=== PATIENT | female | born 1950 | race Caucasian/White ===

== ENCOUNTER → 2016-09-19 | Outpatient (CLI) | payer OTHER ==
[~2016-09-19] MED LIST: CHOL20009 PO; CLR10 PO; LISI-461 PO; POTA1080 PO; URC10 PO
--- NOTE | 2016-09-19 12:47 | DIAGNOSTIC IMAGING REPORT ---
KUB CLINICAL HISTORY: Nephrolithiasis. COMPARISON STUDY: KUB March 06, 2016. FINDINGS: As before, the symphysis pubis is open. There are surgical staple lines and sutures. Bowel gas pattern is normal. A 7 mm left renal calculus has not significantly changed. No ureteral calculi are identified. IMPRESSION: No change in the 7 mm left renal calculus. Electronically signed by: Brown Quintero M.D. 09/19/2016 12:45 PM Dictated Date/Time: 09/19/2016 12:44 PM
[2016-09-19 12:57] LABS: BLOOD UREA NITROGEN 24 mg/dl (7-18); BUN/CREATININE RATIO 28.3 (10-20); CALCIUM 8.8 mg/dl (8.5-10.1); CARBON DIOXIDE 24 mmol/L (21-32); CHLORIDE 109 mmol/L (98-107); CREATININE 0.84 mg/dl (0.60-1.20); GLUCOSE 79 mg/dl (70-99); POTASSIUM 3.8 mmol/L (3.5-5.1); SODIUM 142 mmol/L (136-145)
== END | disposition home or self-care (01) ==
LOC: C.RAD 11:16
PROVIDERS: ATTEND Urology
DX: N20.0 Calculus of kidney (principal)

== ENCOUNTER → 2016-09-26 | Outpatient (CLI) | payer OTHER ==
[~2016-09-26] MED LIST changes: +OPTIRAY 320 IV PRN
--- NOTE | 2016-09-26 13:36 | DIAGNOSTIC IMAGING REPORT ---
KUB CLINICAL HISTORY: N20.0 [id number] Gross hematuria hematuria COMPARISON STUDY: No previous studies for comparison. FINDINGS: Operative changes consistent with an ileal loop. Both upper urinary tracts are opacified. There is moderate distention of the left renal collecting system and left renal pelvis. There is mild irregularity of the proximal right ureter. There is no evidence for right renal hydronephrosis. IMPRESSION: 1. Moderate pre-existing left hydroureteronephrosis. 2. Moderate irregularity of the right ureter of uncertain significance although components of this potentially are postoperative. 3. Operative changes consistent with a ileal loop procedure. Electronically signed by: Jaydon Sky M.D. 09/26/2016 1:34 PM Dictated Date/Time: 09/26/2016 1:32 PM
--- NOTE | 2016-09-26 14:10 | DIAGNOSTIC IMAGING REPORT ---
CT UROGRAM CLINICAL HISTORY: Gross hematuria. History of bladder cancer. COMPARISON STUDY: Abdominal CT dated 11/19/2011. TECHNIQUE: Before and following the IV administration of 94 cc of Optiray 320, CT urogram of the abdomen and pelvis is performed from the lung bases to the proximal femora. Images are reviewed in the axial, sagittal, and coronal planes. IV contrast was administered without complication. CT DOSE: 1067.27 mGy.cm FINDINGS: Lung bases: The heart is normal in size and without pericardial effusion. There are scattered coronary artery calcifications. A small hiatal hernia is identified. Linear scarring versus atelectasis is present at both lung bases. No airspace consolidation or pleural effusion is seen. Liver: The contrast-enhanced liver is normal in size, contour, and attenuation. There is no intrahepatic biliary ductal dilatation. The hepatic veins and portal veins are patent. Gallbladder: Unremarkable. Spleen: Normal in size and attenuation. Pancreas: Unremarkable. Adrenal glands: Unremarkable. Kidneys and ureters: There is asymmetric cortical atrophy of the left kidney as compared to the right with multiple foci of cortical scarring seen on the left. There is a 4 mm nonobstructing calculus in the right kidney. Left hydroureteronephrosis is unchanged from previous. There is no right-sided hydronephrosis. There are 3 nonobstructing calculi in the left kidney measuring up to 8 mm. The kidneys enhance and excrete symmetrically. There is a 1.8 cm cyst identified in the right upper pole. Additional subcentimeter hypodensities in both kidneys also likely represent cysts but are too small for definitive characterization. Calyceal diverticula are noted in the left kidney. There is no enhancing renal cortical mass lesion identified. There is wall thickening with numerous filling defects identified throughout the right renal pelvis and the right ureter (junior sales representative foci are seen on axial images #186, #188, #199, #217, and #229). Numerous filling defects are also questioned in the left renal collecting system and the distended left ureter. There is intraluminal debris versus filling defects within either the markedly dilated distal right ureter or the ileal conduit in the right pelvis best seen on image #322. Abdominal vasculature: The abdominal aorta is normal in course and caliber noting moderate atherosclerotic calcification. Bowel: There are postoperative changes from right lower quadrant urostomy. A parastomal hernia is identified and contains a loop of small bowel. There are also postoperative changes from subtotal colectomy with colocolonic anastomosis. No bowel obstruction is identified. The appendix is not identified. Peritoneum: There is no intraperitoneal free air or abdominal ascites. Lymphadenopathy: None. Pelvic viscera: The bladder is surgically absent. There is a calcified uterine fibroid. No adnexal lesion is seen. There is a fat-containing hernia in the right groin. Skeletal structures: The skeletal structures are osteopenic. No lytic or blastic the bony lesions are seen. There is diastases of the pubic symphysis with chronic deformity of the bony pelvis. Arthritic change is noted in the hips. There is mild lumbosacral spondylosis. Small bone islands in the body of L1 in the right femoral head are unchanged from 2012. IMPRESSION: 1. There are postoperative changes from bladder resection with diverting right lower quadrant urostomy as well as subtotal colectomy with colocolonic anastomosis. 2. There are numerous small filling defects identified within the renal pelvis bilaterally and involving both ureters as detailed above. 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 Multifocal transitional cell carcinoma is the top differential consideration and would be impossible to exclude given the reported history of bladder cancer. 3. There is no retroperitoneal lymphadenopathy. 4. There is a parastomal hernia which contains a nonobstructed loop of small bowel. No bowel obstruction is seen. 5. Nonobstructing bilateral renal calculi. 6. No enhancing renal cortical mass is seen. 7. Additional findings as above. Electronically signed by: Jarrell Mendoza M.D. 09/26/2016 2:09 PM Dictated Date/Time: 09/26/2016 1:44 PM
[2016-09-26 14:32] LABS: HEMATOCRIT 38.4 % (37-47); MEAN CELL VOLUME 93.9 fL (80-100); MEAN CORPUSCULAR HEMOGLOBIN 31.3 pg (25-34); MEAN CORPUSCULAR HGB CONC 33.3 g/dl (32-36); MEAN PLATELET VOLUME 9.8 fL (7.4-10.4); PLATELET COUNT 311 K/uL (130-400); RED BLOOD COUNT 4.09 M/uL (4.2-5.4); WHITE BLOOD COUNT 10.19 K/uL (4.8-10.8)
== END | disposition home or self-care (01) ==
LOC: C.CTS 12:37
PROVIDERS: ATTEND Urology
DX: R31.0 Gross hematuria (principal); N20.0 Calculus of kidney; K43.5 Parastomal hernia without obstruction or gangrene; Z90.49 Acquired absence of other specified parts of digestive tract

== ENCOUNTER 2016-09-27 11:37 | Emergency (ER) | payer OTHER ==
[~2016-09-27] VITALS: Ht 147.3 cm; Wt 78.5 kg
[~2016-09-27 11:37] MED LIST changes: -CHOL20009 PO; -URC10 PO
[2016-09-27 11:40] VITALS: TEMP 36.6; Ht 147.3 cm; Wt 78.5 kg
[2016-09-27] MEDS ORDERED: URC10 PO (12:13)
[2016-09-27] MEDS ORDERED: CHOL20009 PO (12:14)
--- NOTE | 2016-09-27 12:31 | DIAGNOSTIC IMAGING REPORT ---
CT SCAN OF THE BRAIN WITHOUT IV CONTRAST CLINICAL HISTORY: Fall with head injury. COMPARISON STUDY: No priors. TECHNIQUE: Unenhanced axial CT scan of the brain is performed from the vertex to the skull base. Automated dose control exposure was utilized. FINDINGS: Brain parenchyma: The brain parenchyma is normal in appearance. There is no hemorrhage, mass effect, or evidence of acute territorial ischemia by CT criteria. Martell-white matter is preserved. No extra-axial fluid collection is seen. Ventricles, sulci, cisterns: Normal in configuration. Intracranial vasculature: There is mild atherosclerotic calcification of the cavernous carotid arteries. Calvarium: No depressed calvarial fracture is seen. Sinuses and mastoids: There is subtotal opacification of the left maxillary, the left sphenoid, the ethmoid, and the frontal sinuses. Moderate mucosal thickening is seen within the remaining paranasal sinuses. The mastoid air cells are well pneumatized. Orbits: The bony orbits are grossly intact. IMPRESSION: 1. There is no hemorrhage, mass effect, or evidence of acute territorial ischemia by CT criteria. 2. Significant paranasal sinus disease as above. Electronically signed by: Jarrell Mendoza M.D. 09/27/2016 12:30 PM Dictated Date/Time: 09/27/2016 12:27 PM
--- NOTE | 2016-09-27 12:36 | DIAGNOSTIC IMAGING REPORT ---
CT SCAN OF THE CERVICAL SPINE CLINICAL HISTORY: Trauma. Fall. COMPARISON STUDY: Thyroid ultrasound dated 01/30/2006. TECHNIQUE: CT scan of the cervical spine is performed from the skull base to the upper thoracic spine. Images are reviewed in the axial, sagittal, and coronal planes. IV contrast was not administered for this examination. CT DOSE: 845.39 mGy.cm FINDINGS: Skeletal structures: The skeletal structures are osteopenic. There is no evidence of fracture or subluxation involving the cervical spine. Vertebral body height and alignment are maintained. The odontoid process and lateral masses are intact. The atlantoaxial articulation is preserved noting productive degenerative change. The spinous processes appear intact. Anterior osteophytes are seen from C3 through C7. Intervertebral discs: There is advanced degenerative disc space narrowing at C4-C5, C5-C6, C6-C7. Mild to moderate narrowing is seen at C3 -C4. Central canal: Posterior disc osteophyte complexes from C3-C4 through C6-C7 may contribute to minimal acquired compromise the central canal. Soft tissues: The prevertebral and paraspinous soft tissues are within normal limits. The thyroid gland is enlarged and heterogeneous. A peripherally calcified nodule in the right lobe measures up to 1.8 cm. Additional smaller nodules are noted. The thyroid nodules were better assessed on the 2016 ultrasound. Calvarium: The visualized calvarium at the skull base appears intact. Brain parenchyma: Partially visualized brain parenchyma the skull base is within normal limits. Sinuses and mastoids: Significant mucosal thickening seen within the visualized maxillary, sphenoid, and ethmoid sinuses. The mastoid air cells are well pneumatized. Lung apices: Clear as visualized. IMPRESSION: 1. There is no evidence of fracture or subluxation involving the cervical spine. 2. Osteopenia and spondylotic change as above. 3. Enlarged and multinodular thyroid gland. Electronically signed by: Jarrell Mendoza M.D. 09/27/2016 12:34 PM Dictated Date/Time: 09/27/2016 12:30 PM
--- NOTE | 2016-09-27 12:58 | EMERGENCY ROOM VISIT NOTE ---
History First contact with patient: 11:46 Chief Complaint: FALL Stated Complaint: FELL IN DR. LARSEN'S HALLWAY History of Present Illness The patient is a 66 year old female who presents to the Emergency Department by private vehicle with her mother for evaluation after sustaining a fall while at her urologists appointment today. She reports that she tripped on a carpet causing her to fall face first. She denies any dizziness, lightheadedness, chest pain, or shortness of breath prior to the fall. She reports that she was unable to catch herself and struck the LEFT-sided face on the ground. She denies loss of consciousness. The patient was helped from the floor. She complains of some pain to the LEFT-sided face. She denies any total headache, dizziness, lightheadedness, blurry vision, double vision, slurred speech, facial droop, unilateral weakness/numbness, neck pain, chest pain, abdominal pain, back pain, or extremity pain. She rates her current discomfort as a 6/ 10. She is tried nothing for her pain to this point. The patient does not take blood thinners. Review of Systems A complete 10-point Review of Systems was discussed with the patient, with pertinent positives and negatives listed in the History of Present Illness. All remaining Review of Systems questions can be considered negative unless otherwise specified. Social History Smoking Status: Never Smoker Smokeless Tobacco Use: No Alcohol Use: none Drug Use: none Marital Status: single Housing Status: lives with family Current/Historical Medications Scheduled Cholecalciferol (Vitamin D), 2,000 UNITS PO DAILY Lisinopril (Zestril), 10 MG PO DAILY Loratadine (Claritin), 10 MG PO DAILY Potassium Citrate (Potassium Citrate), 10 MEQ PO BID Allergies Coded Allergies: Penicillins (Unverified Allergy, Severe, ANAPHYLAXIS, 09/27/16) ALLERGY2 (Verified Allergy, Unknown, 02/03/06) Uncoded Allergies: N (Allergy, Unknown, 10/08/02) PCN/CLORAMACETIN? (Allergy, Unknown, 10/08/02) Physical Exam Vital Signs Date Time Temp Pulse Resp B/P Pulse Ox O2 Delivery O2 Flow Rate FiO2 09/27/16 13:02 93 18 149/94 97 09/27/16 11:40 36.6 96 20 177/112 96 Room Air Pain Rating (0-10): 6 Physical Exam VITAL SIGNS - Vital signs and nursing notes were reviewed. GENERAL - 66-year-old female appearing her stated age. Communicates well with provider and answers questions appropriately. HEAD - Normocephalic, Atraumatic. No Fam's Sign or Raccoon's Eyes. No depressed skull fractures palpable. EYES - PERRL with EOMI bilaterally. Without subconjunctival hemorrhage. Palpebral conjunctiva pink and moist with no injection. EARS - No deformities of external structures noted on gross examination bilaterally. No hemotympanum present. No tympanic perforation noted. Handle of malleus, umbo, cone of light, pars tensa/flaccid all easily visualized. NOSE - Midline and without cyanosis. No epistaxis or clear watery discharge noted. Septum midline without deviation. No septal hematoma noted. No overlying ecchymosis noted. MOUTH/OROPHARYNX - Without perioral cyanosis. Tongue midline with equal elevation of palate bilaterally. No blood noted in the oropharynx. No tonsillar hypertrophy, erythema, or exudates noted. No dental fractures noted. NECK - FROM assessed. No nuchal rigidity. No tenderness to palpation over the cervical spinous processes. No cervical paraspinal muscle tenderness noted. LUNGS - Chest wall symmetric without accessory muscle use, intercostals retractions, or central cyanosis. Normal vesicular breath sounds CTA B/L. No wheezes, rales, or rhonchi appreciated. CARDIAC - RRR with S1/S2. No murmur, rubs, or gallops appreciated. ABDOMEN - Abdominal contour obese without pulsations or visible masses. BS normoactive all four quadrants. EXTREMITIES - No gross deformities noted of the extremities. FROM with no tremors, fasciculations, or clonus noted on PROM throughout. +5/5 strength noted in UE/LE bilaterally. NEUROLOGIC - Cranial nerves II through XII grossly intact. Sensory intact to light touch throughout. Negative Pronator Drift. PSYCH - A&Ox3 and cooperates fully with examiner. Pt is very pleasant and interacts well with examiner. Medical Decision & Procedures ER Provider Diagnostic Interpretation: Radiological imaging and reports were reviewed by myself. Radiologist's Interpretation as follows: CT SCAN OF THE BRAIN WITHOUT IV CONTRAST CLINICAL HISTORY: Fall with head injury. COMPARISON STUDY: No priors. TECHNIQUE: Unenhanced axial CT scan of the brain is performed from the vertex to the skull base. Automated dose control exposure was utilized. FINDINGS: Brain parenchyma: The brain parenchyma is normal in appearance. There is no hemorrhage, mass effect, or evidence of acute territorial ischemia by CT criteria. Martell-white matter is preserved. No extra-axial fluid collection is seen. Ventricles, sulci, cisterns: Normal in configuration. Intracranial vasculature: There is mild atherosclerotic calcification of the cavernous carotid arteries. Calvarium: No depressed calvarial fracture is seen. Sinuses and mastoids: There is subtotal opacification of the left maxillary, the left sphenoid, the ethmoid, and the frontal sinuses. Moderate mucosal thickening is seen within the remaining paranasal sinuses. The mastoid air cells are well pneumatized. Orbits: The bony orbits are grossly intact. IMPRESSION: 1. There is no hemorrhage, mass effect, or evidence of acute territorial ischemia by CT criteria. 2. Significant paranasal sinus disease as above. CT SCAN OF THE CERVICAL SPINE CLINICAL HISTORY: Trauma. Fall. COMPARISON STUDY: Thyroid ultrasound dated 01/30/2006. TECHNIQUE: CT scan of the cervical spine is performed from the skull base to the upper thoracic spine. Images are reviewed in the axial, sagittal, and coronal planes. IV contrast was not administered for this examination. CT DOSE: 845.39 mGy.cm FINDINGS: Skeletal structures: The skeletal structures are osteopenic. There is no evidence of fracture or subluxation involving the cervical spine. Vertebral body height and alignment are maintained. The odontoid process and lateral masses are intact. The atlantoaxial articulation is preserved noting productive degenerative change. The spinous processes appear intact. Anterior osteophytes are seen from C3 through C7. Intervertebral discs: There is advanced degenerative disc space narrowing at C4-C5, C5-C6, C6-C7. Mild to moderate narrowing is seen at C3 -C4. Central canal: Posterior disc osteophyte complexes from C3-C4 through C6-C7 may contribute to minimal acquired compromise the central canal. Soft tissues: The prevertebral and paraspinous soft tissues are within normal limits. The thyroid gland is enlarged and heterogeneous. A peripherally calcified nodule in the right lobe measures up to 1.8 cm. Additional smaller nodules are noted. The thyroid nodules were better assessed on the 2016 ultrasound. Calvarium: The visualized calvarium at the skull base appears intact. Brain parenchyma: Partially visualized brain parenchyma the skull base is within normal limits. Sinuses and mastoids: Significant mucosal thickening seen within the visualized maxillary, sphenoid, and ethmoid sinuses. The mastoid air cells are well pneumatized. Lung apices: Clear as visualized. IMPRESSION: 1. There is no evidence of fracture or subluxation involving the cervical spine. 2. Osteopenia and spondylotic change as above. 3. Enlarged and multinodular thyroid gland. ED Course Patient was seen and evaluated by myself. CT of the head and cervical spine were obtained. Patient declines anything for pain while in the emergency department. Imaging results as above. Imaging results were reviewed with the patient who acknowledges understanding. Patient was encouraged to follow up with her primary care provider from today's visit. She was educated on worrisome symptoms for return visit to the emergency department. Patient discharged home in good condition. Medical Decision Given the patient's presentation and stated complaints, I did elect to perform the above-mentioned workup. The patient presents today after sustaining a mechanical fall. She struck her face while falling forward. Because of this, a CT of her head as well as cervical spine for obtained. Imaging studies were thankfully unremarkable. The patient has no acute neurological findings. The patient feels fine at this time. Clinically, the patient appears very well. She will follow-up with her primary care provider from today's visit or return for any changing/worsening symptoms. Patient discharged home afebrile and in good condition. In the evaluation and treatment of this patient, the following differential diagnoses were considered: Concussion, Contrecoup Injury, Brain Tumor, Depression, Encephalitis, Hypothyroidism, Meningitis, CVA, TIA, Migraine, Cluster Headache, Intracranial Abnormality, Intracranial Hemorrhage, Subdural Hematoma, Subarachnoid Hemorrhage, Hydrocephalus. Impression Primary Impression: Closed head injury Additional Impression: Fall Departure Information Dispostion Home / Self-Care Condition GOOD Referrals Aldo Braden M.D. (PCP) Patient Instructions My [facility] Additional Instructions You have been treated in the Emergency Department for a Closed Head Injury. CT Scan of your head/brain demonstrated no acute bleeding or other abnormalities. This does not completely rule out the risk for future damage to the brain. For pain control, you can use the following [id number] medicines (if >12 yo): - Regular strength (325mg/tab) Tylenol (acetaminophen) 2 tabs every 4-6 hours as needed. Do not exceed 12 tablets in a 24 hour period. Avoid taking more than 4 grams (4000 mg) of Tylenol per day. This includes any other sources of acetaminophen you may take on a regular basis. - Regular strength (200 mg/tab) Advil (ibuprofen) 1-2 tabs every 4-6 hours as needed. Do not exceed a dose of 3200 mg per day. You should relax in a quiet, dark place for the rest of the day. Avoid any possible triggers including: cigarette smoke, caffeine, nicotine, chocolate, wine, beer, loud noises or music, or bright lights. You should schedule a follow-up appointment in 2-3 days with your Primary Care Provider or established Neurologist for further evaluation and treatment of your Headache. Return to the Emergency Department if your current symptoms worsen despite treatment course outlined above, or if you develop any of the following symptoms : intractable pain despite aforementioned treatment course, visual disturbances , loss of vision, unilateral weakness or facial drooping, slurring of speech, loss of coordination, or loss of consciousness. Problem Qualifiers Primary Impression: Closed head injury Encounter type: initial encounter Qualified Codes: S09.90XA - Unspecified injury of head, initial encounter Additional Impression: Fall Encounter type: initial encounter Qualified Codes: W19.XXXA - Unspecified fall, initial encounter
[2016-09-27 13:02] VITALS: BP 149/94; PULSE 93; O2SAT 97
== END 2016-09-27 13:02 | disposition home or self-care (01) ==
LOC: C.EDB 11:38 → C.EDD 13:02
DX: S09.90XA Unspecified injury of head, initial encounter (principal); W19.XXXA Unspecified fall, initial encounter; R31.0 Gross hematuria; N13.0 Hydronephrosis with ureteropelvic junction obstruction; N20.0 Calculus of kidney; R82.8 Abnormal findings on cytological and histological examination of urine

== ENCOUNTER → 2016-09-27 | Outpatient (CLI) | payer OTHER ==
[~2016-09-27] MED LIST changes: -OPTIRAY 320 IV PRN
== END | disposition home or self-care (01) ==
LOC: C.PATHSPEC 17:59
PROVIDERS: ATTEND Urology
DX: R31.0 Gross hematuria (principal); N13.0 Hydronephrosis with ureteropelvic junction obstruction; N20.0 Calculus of kidney; R82.8 Abnormal findings on cytological and histological examination of urine

== ENCOUNTER → 2017-01-02 | Outpatient (CLI) | payer OTHER ==
[~2017-01-02] MED LIST changes: +CHOL20009 PO; -POTA1080 PO; +URC10 PO
[2017-01-02 11:58] LABS: BLOOD UREA NITROGEN 24 mg/dl (7-18); BUN/CREATININE RATIO 25.4 (10-20); CALCIUM 9.5 mg/dl (8.5-10.1); CARBON DIOXIDE 29 mmol/L (21-32); CHLORIDE 108 mmol/L (98-107); CREATININE 0.93 mg/dl (0.60-1.20); GLUCOSE 87 mg/dl (70-99); POTASSIUM 4.4 mmol/L (3.5-5.1); SODIUM 143 mmol/L (136-145)
== END | disposition home or self-care (01) ==
LOC: C.LAB 10:10
PROVIDERS: ATTEND Urology
DX: N39.0 Urinary tract infection, site not specified (principal)

== ENCOUNTER → 2017-07-10 | Outpatient (CLI) | payer OTHER ==
[2017-07-10 13:23] LABS: BASO % 0.2 %; BASO ABS # 0.02 K/uL (0-0.2); COMPLETE YES; EOS % 3.7 %; HEMATOCRIT 39.4 % (37-47); IG% 0.3 %; LYMPH % 13.7 %; LYMPH ABS # 1.21 K/uL (1.2-3.4); MEAN CELL VOLUME 94.9 fL (80-100); MEAN CORPUSCULAR HEMOGLOBIN 31.6 pg (25-34); MEAN CORPUSCULAR HGB CONC 33.2 g/dl (32-36); MEAN PLATELET VOLUME 10.3 fL (7.4-10.4); MONO % 6.9 %; NEUT % 75.2 %; PLATELET COUNT 298 K/uL (130-400); RED BLOOD COUNT 4.15 M/uL (4.2-5.4); WHITE BLOOD COUNT 8.81 K/uL (4.8-10.8)
[2017-07-10 13:53] LABS: ALT/SGPT 27 U/L (12-78); AST/SGOT 16 U/L (15-37); BLOOD UREA NITROGEN 24 mg/dl (7-18); BUN/CREATININE RATIO 25.5 (10-20); CARBON DIOXIDE 23 mmol/L (21-32); CHLORIDE 108 mmol/L (98-107); CREATININE 0.94 mg/dl (0.60-1.20); GLUCOSE 96 mg/dl (70-99); POTASSIUM 4.4 mmol/L (3.5-5.1); SODIUM 140 mmol/L (136-145)
[2017-07-10 14:04] LABS: ALB/GLOB RATIO 0.9 (0.9-2); ALKALINE PHOSPHATASE 143 U/L (45-117); THYROID STIMULATING HORMONE 0.418 uIu/ml (0.300-4.500)
[2017-07-10 14:13] LABS: ESTIMATED AVERAGE GLUCOSE 111 mg/dl; HA1C FLAG Normal (Normal)
== END | disposition home or self-care (01) ==
LOC: C.LABBC 10:44
PROVIDERS: ATTEND Internal Medicine
DX: N13.30 Unspecified hydronephrosis (principal); I10 Essential (primary) hypertension; R26.9 Unspecified abnormalities of gait and mobility; E78.5 Hyperlipidemia, unspecified; R73.01 Impaired fasting glucose; E55.9 Vitamin D deficiency, unspecified

== ENCOUNTER → 2017-09-12 | Outpatient (CLI) | payer OTHER ==
[~2017-09-12] MED LIST changes: +CHOL2000 PO; -CHOL20009 PO; +TRIM100T PO
[2017-09-12 14:05] LABS: BLOOD UREA NITROGEN 23 mg/dl (7-18); CALCIUM 9.5 mg/dl (8.5-10.1); CARBON DIOXIDE 25 mmol/L (21-32); CREATININE 0.84 mg/dl (0.60-1.20); GLUCOSE 105 mg/dl (70-99); POTASSIUM 4.2 mmol/L (3.5-5.1); SODIUM 138 mmol/L (136-145)
== END | disposition home or self-care (01) ==
LOC: C.LABBC 09:11
PROVIDERS: ATTEND Family Medicine Adult Medicine
DX: R60.0 Localized edema (principal)

== ENCOUNTER → 2017-09-16 | Day surgery (SDC) | payer OTHER ==
[2017-09-03 09:13] VITALS: Ht 144.8 cm; Wt 72.7 kg
[~2017-09-16] VITALS: Ht 144.8 cm; Wt 72.7 kg
[~2017-09-16] MED LIST changes: +LIDOCAINE HCL 2% 2 ML VIAL (20MG/ML) ONE; +MIDAZOLAM HCL 1 MG/ML 2ML VIAL ONE; +ONDANSETRON INJ 2 MG/ML 2 ML VIAL ONE; +PROPOFOL IV EMULSION 10 MG/ML 20 ML VIAL IV ONE; +SODIUM CHLORIDE 0.9% 500ML 500 ML IV ONE
--- NOTE | 2017-09-16 09:38 | Endo History and Physical ---
History & Physical Date of Service: Sep 16, 2017. Chief Complaint: history of colon cancer Referring Physician: Dr. Aldo Braden History of Present Illness 67 yo CF who presents for colonoscopy secondary to history of colon cancer. Past Medical History Cancer, High Cholesterol, Hypertension, Thyroid Disease, Other, [place] Past Surgical History Hx Cardiac Surgery: No Hx Internal Defibrillator: No Hx Pacemaker: No Hx Abdominal Surgery: Yes (APPENDECTOMY, OOPHORECTOMY) Hx of Implantable Prosthesis: No Hx Post-Op Nausea and Vomiting: No Hx Cancer Surgery: Yes (COLON RESECTION ) Hx Thoracic Surgery: No Hx Orthopedic: No Hx Urinary Tract Surgery: Yes (COMPLETE BLADDER CYSTECTOMY WITH URETEROSIGMOIDOSTOMY ) Social History Smoking Status: Never Smoker Hx Substance Use: No Hx Alcohol Use: No Allergies Coded Allergies: Chloramphenicol (Verified Allergy, Unknown, HIVES, 09/03/17) Penicillins (Verified Allergy, Unknown, SHORTNESS OF BREATH, 09/03/17) Current Medications Reported Home Medications Medications Dose Route/Sig Max Daily Dose Days Date Category Dose Instructions Proloprim (Trimethoprim) 100 Mg Tab 100 Mg PO HS 09/03/17 Reported Vitamin D3 (Cholecalciferol) 2,000 Unit Cap 1 Cap PO DAILY 09/03/17 Reported Potassium Citrate 10 Meq Tab 10 Meq PO BID 09/27/16 Reported Zestril (Lisinopril) 10 Mg Tab 10 Mg PO DAILY 08/24/14 Reported Claritin (Loratadine) 10 Mg Tab 10 Mg PO DAILY 08/24/14 Reported PRN NEEDED FOR ALLERGIES Vital Signs Weight (Kilograms): 72.73 Height (Feet): 4 Height (Inches): 9 Date Time Temp Pulse Resp B/P (MAP) Pulse Ox O2 Delivery O2 Flow Rate FiO2 09/16/17 09:11 36.4 101 20 165/76 (105) 94 Room Air Physical Exam General Appearance: WD/WN, no apparent distress Respiratory/Chest: Auscultation: breath sounds normal Cardiovascular: Heart Auscultation: RRR Abdomen: Bowel Sounds: normal Inspection & Palpation: soft, non-distended, no tenderness, guarding & rebound Assessment and Plan Assessment: 67 yo CF who presents for colonoscopy secondary to history of colon cancer. Plan: Proceed with colonoscopy.
--- NOTE | 2017-09-16 10:17 | Discharge Instructions ---
Endoscopy Patient Instructions Date / Procedure(s) Performed Sep 16, 2017. Colonoscopy Allergy Information Coded Allergies: Chloramphenicol (Verified Allergy, Unknown, HIVES, 09/03/17) Penicillins (Verified Allergy, Unknown, SHORTNESS OF BREATH, 09/03/17) Discharge Date / Findings Sep 16, 2017. Colon polyp Internal hemorrhoids Medication Instructions OK to resume all medications today as prescribed Reported Home Medications Medications Dose Route/Sig Max Daily Dose Days Date Category Dose Instructions Proloprim (Trimethoprim) 100 Mg Tab 100 Mg PO HS 09/03/17 Reported Vitamin D3 (Cholecalciferol) 2,000 Unit Cap 1 Cap PO DAILY 09/03/17 Reported Potassium Citrate 10 Meq Tab 10 Meq PO BID 09/27/16 Reported Zestril (Lisinopril) 10 Mg Tab 10 Mg PO DAILY 08/24/14 Reported Claritin (Loratadine) 10 Mg Tab 10 Mg PO DAILY 08/24/14 Reported PRN NEEDED FOR ALLERGIES Provider Instructions Activity Restrictions - No exercising or heavy lifting for 24 hours. - Do not drink alcohol the day of the procedure. - Do not drive a car or operate machinery until the day after the procedure. - Do not make any important decisions or sign important papers in 24 hours after the procedure. Following Day: - Return to full activity which may include returning to work/school. Diet Start your diet with liquids and light foods (jello, soup, juice, toast). Then eat your usual diet if not nauseated. Treatment For Common After Affects For mild abdominal pain, bloating, or excessive gas: - Rest - Eat lightly - Lie on right side Follow-Up Information Follow-up with Dr. Aldo Braden as scheduled Anesthesia Information What You Should Know You have had a procedure that required some medicine to reduce anxiety and discomfort. This treatment is called moderate sedation. After receiving the treatment, you may be sleepy, but you will be able to breathe on your own. The effects of the treatment may last for several hours. Follow these instructions along with Activity/Diet recommendations noted above: * Do NOT do anything where dizziness or clumsiness would be dangerous. * Rest quietly at home today, then you can be up and about tomorrow. * Have a responsible person stay with you the rest of today. * You may have had an I.V. today. If so, you may take the dressing off later today. Recommendations Call your doctor if: * Trouble breathing * Continuous vomiting for more than 24 hours * Temperature above 101 degrees * Severe abdominal pain or bloating * Pain not relieved by pain medicine ordered * There is increased drainage or redness from any incision * A large amount of rectal bleeding greater than 2-3 tablespoons. (If you had a polyp/s removed or have hemorrhoids, a small amount of blood - from the rectum is to be expected.) * You have any unanswered questions or concerns. IN THE EVENT OF A SERIOUS EMERGENCY, GO TO THE NEAREST EMERGENCY ROOM Your discharge instructions were prepared by provider Berto Bonilla. Patient Instructions Signature Page Kiah Howard Patient (or Guardian) Signature/Date: I have read and understand the instructions given to me by my caregivers. Caregiver/RN/Doctor Signature/Date: The above-named patient and/or guardian has received patient instructions on this date. + Original Patient Signature Page (only) stays with chart. Please make copy for patient.
--- NOTE | 2017-09-16 10:24 | Anesthesiology Progress Note ---
Anesthesia Post Op Note Date & Time Sep 16, 2017 at 10:24 Vital Signs Pain Intensity: 0 Vital Signs Past 12 Hours Date Time Temp Pulse Resp B/P (MAP) Pulse Ox O2 Delivery O2 Flow Rate FiO2 09/16/17 09:11 36.4 101 20 165/76 (105) 94 Room Air Notes Mental Status: alert / awake / arousable, participated in evaluation Pt Amnestic to Procedure: Yes Nausea / Vomiting: adequately controlled Pain: adequately controlled Airway Patency, RR, SpO2: stable & adequate BP & HR: stable & adequate Hydration State: stable & adequate Anesthetic Complications: no major complications apparent
--- NOTE | 2017-09-16 10:28 | GI REPORT ---
Procedure Date: 09/16/2017 10:02 AM Procedure: Colonoscopy Indications: High risk colon cancer surveillance: Personal history of colon cancer Medicines: Monitored Anesthesia Care Complications: No immediate complications. Estimated Blood Loss: Estimated blood loss: none. Procedure: Pre-Anesthesia Assessment: - Prior to the procedure, a History and Physical was performed, and patient medications and allergies were reviewed. The patient's tolerance of previous anesthesia was also reviewed. The risks and benefits of the procedure and the sedation options and risks were discussed with the patient. All questions were answered, and informed consent was obtained. Prior Anticoagulants: The patient has taken no previous anticoagulant or antiplatelet agents. ASA Grade Assessment: III - A patient with severe systemic disease. After reviewing the risks and benefits, the patient was deemed in satisfactory condition to undergo the procedure. After I obtained informed consent, the scope was passed under direct vision. Throughout the procedure, the patient's blood pressure, pulse, and oxygen saturations were monitored continuously. The scope was introduced through the anus and advanced to the terminal ileum. The colonoscopy was performed without difficulty. The patient tolerated the procedure well. The quality of the bowel preparation was good. The ileocecal valve, appendiceal orifice, and rectum were photographed. Findings: A 5 mm polyp was found in the ascending colon. The polyp was sessile. The polyp was removed with a hot snare. Resection and retrieval were complete. There was evidence of a prior end-to-end colo-colonic anastomosis in the sigmoid colon. This was patent and was characterized by healthy appearing mucosa. Non-bleeding internal hemorrhoids were found during retroflexion. The hemorrhoids were small. Impression: - One 5 mm polyp in the ascending colon, removed with a hot snare. Resected and retrieved. - Patent end-to-end colo-colonic anastomosis, characterized by healthy appearing mucosa. - Non-bleeding internal hemorrhoids. Recommendation: - Resume previous diet. - Continue present medications. - Repeat colonoscopy for surveillance based on pathology results. - Return to primary care physician as previously scheduled. Berto Bonilla, 09/16/2017 10:27:30 AM This report has been signed electronically. Note Initiated On: 09/16/2017 10:02 AM I attest to the content of the Intraoperative Record and orders documented therein, exceptions below
[2017-09-16 10:47] VITALS: BP 139/82; PULSE 108; O2SAT 97
== END | disposition home or self-care (01) ==
LOC: C.GI 08:27
PROVIDERS: ATTEND Internal Medicine
DX: Z12.11 Encounter for screening for malignant neoplasm of colon (principal); Z85.038 Personal history of other malignant neoplasm of large intestine; D12.2 Benign neoplasm of ascending colon; K64.8 Other hemorrhoids; E66.9 Obesity, unspecified; Z68.34 Body mass index [BMI] 34.0-34.9, adult; Z90.89 Acquired absence of other organs; Z98.890 Other specified postprocedural states; Z88.0 Allergy status to penicillin

== ENCOUNTER → 2017-10-16 | Outpatient (CLI) | payer OTHER ==
[~2017-10-16] MED LIST changes: -LIDOCAINE HCL 2% 2 ML VIAL (20MG/ML) ONE; -MIDAZOLAM HCL 1 MG/ML 2ML VIAL ONE; -ONDANSETRON INJ 2 MG/ML 2 ML VIAL ONE; -PROPOFOL IV EMULSION 10 MG/ML 20 ML VIAL IV ONE; -SODIUM CHLORIDE 0.9% 500ML 500 ML IV ONE
--- NOTE | 2017-10-16 09:44 | DIAGNOSTIC IMAGING REPORT ---
CHEST 2 VIEWS ROUTINE CLINICAL HISTORY: R60.0 Bilateral leg [id number] COMPARISON STUDY: 09/05/2017 FINDINGS: The cardiac and mediastinal contours are normal. There is no evidence of focal pulmonary consolidation. There is no evidence of failure. No pleural effusions are visualized.[ IMPRESSION: No active disease in the chest. Electronically signed by: Daniele Olivo M.D. 10/16/2017 9:43 AM Dictated Date/Time: 10/16/2017 9:42 AM
== END | disposition home or self-care (01) ==
LOC: C.RADBC 09:30
PROVIDERS: ATTEND Internal Medicine
DX: R60.0 Localized edema (principal)

== ENCOUNTER → 2017-10-24 | Outpatient (CLI) | payer OTHER ==
[2017-10-24 11:49] LABS: BLOOD UREA NITROGEN 25 mg/dl (7-18); CALCIUM 9.3 mg/dl (8.5-10.1); CARBON DIOXIDE 27 mmol/L (21-32); CREATININE 1.12 mg/dl (0.60-1.20); GLUCOSE 112 mg/dl (70-99); POTASSIUM 3.8 mmol/L (3.5-5.1); SODIUM 139 mmol/L (136-145)
== END | disposition home or self-care (01) ==
LOC: C.LABBC 08:02
PROVIDERS: ATTEND Internal Medicine
DX: R60.0 Localized edema (principal)

== ENCOUNTER → 2017-10-30 | Outpatient (CLI) | payer OTHER ==
--- NOTE | 2017-10-30 16:22 | DIAGNOSTIC IMAGING REPORT ---
ULTRASOUND BILATERAL LOWER EXTREMITY VENOUS CLINICAL HISTORY: Lower extremity edema. COMPARISON STUDY: Bilateral extremity venous ultrasound dated 11/12/2011. TECHNIQUE: Real-time, grayscale, and color Doppler sonography of the deep veins of the right and left lower extremity was performed from the inguinal crease to the calf. Compression and augmentation were utilized. FINDINGS: There is no sonographic evidence of deep venous thrombosis identified in the right or left lower extremity. The common femoral, superficial femoral, and popliteal veins are patent and normally compressible bilaterally. The greater saphenous vein and the profunda femoris vein at the junction with the common femoral vein are clear in both legs. The visualized calf veins are patent bilaterally. IMPRESSION: There is no sonographic evidence of deep venous thrombosis identified in the right or left lower extremity. Electronically signed by: Jarrell Mendoza M.D. 10/30/2017 4:21 PM Dictated Date/Time: 10/30/2017 4:20 PM
[2017-10-30 17:04] LABS: BLOOD UREA NITROGEN 26 mg/dl (7-18); CALCIUM 9.5 mg/dl (8.5-10.1); CARBON DIOXIDE 26 mmol/L (21-32); GLUCOSE 118 mg/dl (70-99); POTASSIUM 3.7 mmol/L (3.5-5.1); SODIUM 140 mmol/L (136-145)
== END | disposition home or self-care (01) ==
LOC: C.ULTR 15:36
PROVIDERS: ATTEND Physician Assistant Medical
DX: R60.0 Localized edema (principal); R06.00 Dyspnea, unspecified